=== PATIENT | male | born 1990 | race Caucasian/White ===

== ENCOUNTER → 2021-08-21 08:36 | Outpatient (BNVA) | payer MEDICAID, SELFPAY | PROVIDERS: Family Provider Emergency Medicine; PCP Family Medicine; Visit Provider Psychiatry & Neurology Psychiatry | DX: F43.12 Post-traumatic stress disorder, chronic (principal); F15.21 Other stimulant dependence, in remission; F11.21 Opioid dependence, in remission; F10.21 Alcohol dependence, in remission; F12.20 Cannabis dependence, uncomplicated; F17.210 Nicotine dependence, cigarettes, uncomplicated; F15.959 Other stimulant use, unspecified with stimulant-induced psychotic disorder, unspecified | CPT/HCPCS: 99204 ==

== ENCOUNTER → 2021-09-25 10:47 | Outpatient (BNVA) | payer MEDICAID, SELFPAY | PROVIDERS: Family Provider Emergency Medicine; PCP Family Medicine; Visit Provider Psychiatry & Neurology Psychiatry | DX: F43.12 Post-traumatic stress disorder, chronic (principal); F15.959 Other stimulant use, unspecified with stimulant-induced psychotic disorder, unspecified; F17.210 Nicotine dependence, cigarettes, uncomplicated; F12.20 Cannabis dependence, uncomplicated; F11.21 Opioid dependence, in remission; F10.21 Alcohol dependence, in remission; F15.21 Other stimulant dependence, in remission | CPT/HCPCS: 99214 ==

== ENCOUNTER 2023-03-29 13:19 | Emergency (ER) | payer MEDICAID, SELFPAY ==
[2023-03-29 13:41] VITALS: BMI 33.8
[2023-03-29 13:44] VITALS: BP 169/122; PULSE 102; RESP 16; TEMP 36.8; O2SAT 98
--- NOTE | 2023-03-29 13:53 | ED_ITS ---
HPI - Skin/Abscess/Foreign Bdy General: Chief complaint: Skin/Abscess/Foreign Body Stated complaint: swelling on right index finger Time Seen by Provider: 03/29/23 13:45 Source: patient Mode of arrival: ambulatory Limitations: no limitations History of Present Illness: Patient is a nice 32-year-old male who presents to ED today with concerns of an infection to his right index finger. He states a few days ago he noticed what looked like a small pimple to the finger that has since progressed and enlarged. 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 Last tetanus is unknown. He complains of pain and redness to the dorsal aspect of his proximal right index finger. He has not noticed any diffuse uniform digit swelling. He maintains full range of motion of the MCP joint and throughout the digit. He has not noticed any streaking into his hand. No fevers. MD complaint: abscess/boil and lesion Onset (ago): day(s) Tetanus up to date: no Location: R hand Severity: mild Pain Consistency: constant Relieving factors: none Exacerbating factors: none Context: other (had small pimple a few days ago) Associated symptoms: Reports no associated symptoms; Deny chills or fever(s) Treatments prior to arrival: none Review of Systems Const: Denies: fever(s) or chills Musc: Reports: extremity pain (R index finger) and extremity swelling (R index finger); Denies: joint pain, joint swelling or limited range of motion Skin/Breast: Reports: new lesions (R index finger) Neuro: Denies: numbness in extremities or sensory changes PFS ED PFSH: Family History Mother CAD (coronary artery disease) Other Cancer Social History Smoking and tobacco status: current every day smoker cigars Cigars smoked per week: 7 Years smoked cigars: 21 Quit status (tobacco): considering quitting Second hand smoke exposure: Yes Alcohol intake: current Alcohol intake frequency: 3 or more drinks per day Physical Exam Const: COMMON NORMALS: no acute distress, patient oriented x3, no limitations, alert and well nourished Extremity: COMMON NORMALS: full ROM and capillary refill normal GENERAL: Yes normal exam except as noted Hand Right Back: 1. erythema/mild edema; small central lesion; no circumferential redness or edema; no lymphangitic streaking; no underlying fluctuance; full range of motion of his MCP and PIP joints; redness and swelling does not extend into either joint and is localized to the dorsal proximal phalanx region Neuro: COMMON NORMALS: patient oriented x3, moves all extremities, no focal motor deficits and no sensory deficits noted SENSORIUM/ORIENTATION: Yes alert Skin: NARRATIVE SKIN EXAM: see above Course Vital Signs: Vital signs: Vital Signs Temperature 98.3 F 03/29/23 13:44 Pulse Rate 102 H 03/29/23 13:44 Respiratory Rate 16 03/29/23 13:44 Blood Pressure 169/122 03/29/23 13:44 Pulse Oximetry 98 03/29/23 13:44 Oxygen Delivery Me thod Room Air 03/29/23 13:44 MDM - Skin/Abscess/Foreign Bdy Medicial Decision Making Patient with cellulitis/early abscess formation to the dorsal aspect of his right index proximal phalanx. Nothing at this time is amendable to I&D. No concern for foreign body. He has nothing at this time to suggest an extensor tenosynovitis. Tetanus was updated. Patient reports history of MRSA so will cover with Bactrim. Strict return to ED precautions given. Discharge Plan Discharge Patient Disposition: Home Clinical Impression: Cellulitis Qualifiers: Site of cellulitis: extremity Site of cellulitis of extremity: finger Laterality: right Qualified Code(s): L03.011 - Cellulitis of right finger Condition: Stable Prescriptions: New Bactrim DS 800-160 mg tablet 2 tab PO BID 7 Days Qty: 28 0RF No Action trazodone 50 mg tablet 100 mg PO .HS PRN (Reason: insomnia) Qty: 60 1RF risperidone [Risperdal] 2 mg tablet 2 mg PO BID Qty: 60 1RF fluoxetine [Prozac] 20 mg capsule 20 mg PO DAILY Qty: 30 1RF Discharge Orders: Discharge ED (Routine); Ordered 03/29/23 Ordered By: Rocio Nevarez Referrals: Reinier Billy MD [Primary Care Provider] - Patient Instructions: Cellulitis (ED) Activity Restrictions/Additional Instructions: Take Bactrim as prescribed. Please return if you develop any fevers, worsening redness or swelling, drainage, red streaking up your hand or arm, diffuse swelling to your entire finger, severe pain with flexion or extension of your finger, or any other concerns you may have. Tetanus has been updated today, 03/29/2023 Coding Level of Care Code ED Protective Services Officer for Wilbert Jo
[2023-03-29 14:42] VITALS: BP 169/122; PULSE 102; RESP 16; TEMP 36.8; O2SAT 98
== END 2023-03-29 14:20 | disposition home or self-care (01) ==
PROVIDERS: Emergency Provider Physician Assistant; PCP Family Medicine
DX: L03.011 Cellulitis of right finger (principal); F17.210 Nicotine dependence, cigarettes, uncomplicated
CPT/HCPCS: 99283

== ENCOUNTER 2023-09-15 15:34 | Emergency (ER) | payer MEDICAID, SELFPAY ==
--- NOTE | 2023-09-15 15:35 | XRR_ITS ---
PROCEDURE INFORMATION: Exam: XR Left Shoulder Exam date and time: 09/15/2023 4:14 PM Age: 33 years old Clinical indication: Injury or trauma; Fall; Blunt trauma (contusions or hematomas); Shoulder; Left TECHNIQUE: Imaging protocol: Radiologic exam of the left shoulder. Views: 2 or more views. COMPARISON: No relevant prior studies available. FINDINGS: Bones/joints: Normal. Soft tissues: Normal. XR/XR shoulder LT min 2V* [id number] IMPRESSION: No acute findings.
[2023-09-15 15:44] VITALS: BP 176/108; PULSE 108; RESP 16; TEMP 36.7; O2SAT 99
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
== END 2023-09-15 18:56 | disposition home or self-care (01) ==
PROVIDERS: Emergency Provider Emergency Medicine; PCP Family Medicine
DX: M54.2 Cervicalgia (principal); F17.290 Nicotine dependence, other tobacco product, uncomplicated
CPT/HCPCS: 71101; 72125; 73030; 99284

== ENCOUNTER 2024-11-20 02:14 | Inpatient (IN) | payer OTHER, SELFPAY ==
[2024-11-20 02:22] VITALS: BP 149/97; PULSE 90; RESP 22; TEMP 36.5; O2SAT 96; BMI 30.8
[2024-11-20] MEDS: OLANZapine 10 mg ODT 20 MG PO (02:41)
[2024-11-20] MEDS: LORazepam 2 mg Tablet PO (02:41)
[2024-11-20 03:25] LABS: Basophils # 0.1 10^3/uL (0.0-0.1); Basophils % 0.6 %; Eosinophils # 0.3 10^3/uL (0.0-0.8); Eosinophils % 4.2 %; Lymphocytes # 3.2 10^3/uL (0.8-4.8); Lymphocytes % 39.3 %; Mean Corpuscular Hemoglobin 30.4 pg (27-33); Mean Corpuscular Volume 84.7 fl (82-101); Mean Platelet Volume 11.4 fL (7.4-10.4); Monocytes % 12.5 %; Neutrophils # 3.51 10^3/uL (1.8-7.7); Neutrophils % 43.2 %; Nucleated Red Blood Cells % 0 %; Platelet Count 240 10^3/cmm (157-399); Red Blood Count 4.96 10^6/uL (3.85-5.65); Red Cell Distribution Width 11.9 % (12.1-15.1); White Blood Count 8.14 10^3/uL (3.29-11.43)
--- NOTE | 2024-11-20 03:42 | W.ED.PSYCHS ---
HPI - Psych General: Chief Complaint: Psychiatric Symptoms Stated Complaint: SI Time Seen by Provider: 11/20/24 02:32 History of Present Illness: 34-year-old male patient. He is quite distraught. He has become more depressed. His brother is here with him and is written an affidavit. The patient is willing to come in for help. He is a former amphetamine addict, and notes that he relapsed 3 days ago. He is feeling helpless, hopeless. He is having suicidal ideations for the first time in his life he says. Related Data Previous Rx's ?Medication ?Instructions ?Recorded trazodone 50 mg tablet 100 mg (2 x 50 mg) PO .HS PRN 08/21/21 insomnia #60 tabs fluoxetine 20 mg capsule (Prozac) 20 mg PO DAILY #30 caps 09/25/21 risperidone 2 mg tablet (Risperdal) 2 mg PO BID #60 tabs 09/25/21 methocarbamol 750 mg tablet 750 mg PO Q6H PRN spasms #20 tabs 09/15/23 naproxen 500 mg tablet (Naprosyn) 500 mg PO BID PRN pain #20 tabs 09/15/23 Allergies Allergy/AdvReac Type Severity Reaction Status Date / Time No Known Allergies Allergy Verified 09/15/23 15:44 PFSH ED PFSH: Family History Mother CAD (coronary artery disease) Other Cancer Social History Smoking and tobacco/nicotine status: current every day tobacco/nicotine user cigars Cigars smoked per week: 7 Years smoked cigars: 21 Quit status (tobacco/nicotine): considering quitting Second hand smoke exposure: Yes Alcohol intake: current Alcohol intake frequency: 3 or more drinks per day Physical Exam Const: COMMON NORMALS: no acute distress GENERAL APPEARANCE: cooperative and in distress (Psychological distress); not ill appearing and not frail appearing HENMT: COMMON NORMALS: normocephalic, atraumatic and Normal external nose present HEAD & SCALP: normocephalic and atraumatic FACE & SINUS: normal facial exam and face symmetric NOSE: Normal external nose present Eye: COMMON NORMALS: Equal, round and reactive pupils present and EOMs intact bilaterally PUPIL: Yes Equal, round and reactive pupils present Neck/C-Spine: GENERAL: Yes trachea midline Chest: CHEST: Yes Symmetrical chest wall rise Resp: COMMON NORMALS: normal respiratory effort, No retractions, No use of accessory muscles and clear to auscultation bilaterally AUSCULTATION: clear to auscultation bilaterally Cardio: COMMON NORMALS: regular rate and regular rhythm RATE: regular rate RHYTHM: regular rhythm GI: COMMON NORMALS: Normal to inspection, nondistended, normoactive bowel sounds present Extremity: COMMON NORMALS: no pedal edema Neuro: YULIA COMA SCALE: document GCS findings [place] coma scale eye opening: Spontaneous [place] coma scale verbal response: Orientated Yulia coma scale motor response: Obey commands [place] coma scale total score: 15 SENSORY EXAM: Yes extremities (intact) Psych: COMMON NORMALS: speech normal SPEECH: Yes normal speech Skin: COMMON NORMALS: no rashes or lesions noted GENERAL SKIN EXAM: no rashes or lesions noted Course Vital Signs: Vital signs: Vital Signs Temperature 97.7 F 11/20/24 02:22 Pulse Rate 94 11/20/24 04:08 Respiratory Rate 22 H 11/20/24 02:22 Blood Pressure 136/90 11/20/24 04:08 Pulse Oximetry 98 11/20/24 04:08 Oxygen Delivery Me thod Room Air 11/20/24 04:08 MDM - Psych Medical Decision Making Medically this patient is quite stable. His potassium is 3.2, and is repleted. His labs are otherwise not remarkable. He is voluntary at this point, and willing to stay. He is obviously quite depressed, in distress, and will require psychiatric evaluation. We do have a bed available. He will be admitted to the neuropsychiatric unit. Psychiatry agrees. Lab Data 11/20/24 03:15 11/20/24 03:15 Laboratory Results WBC 8.14 10^3/uL (3.29-11.43) 11/20/24 03:15 RBC 4.96 10^6/uL (3.85-5.65) 11/20/24 03:15 Hgb 15.10 g/dL (11.27-16.99) 11/20/24 03:15 Hct 42.0 % (37-53) 11/20/24 03:15 MCV 84.7 fl (82-101) 11/20/24 03:15 MCH 30.4 pg (27-33) 11/20/24 03:15 MCHC 36.0 g/dL (30-55) 11/20/24 03:15 RDW 11.9 % (12.1-15.1) L 11/20/24 03:15 Plt Count 240 10^3/cmm (157-399) 11/20/24 03:15 MPV 11.4 fL (7.4-10.4) H 11/20/24 03:15 Neut % (Auto) 43.2 % 11/20/24 03:15 Lymph % (Auto) 39.3 % 11/20/24 03:15 [place] % (Auto) 12.5 % 11/20/24 03:15 Eos % (Auto) 4.2 % 11/20/24 03:15 Baso % (Auto) 0.6 % 11/20/24 03:15 Neut # (Auto) 3.51 10^3/uL (1.8-7.7) 11/20/24 03:15 Lymph # (Auto) 3.2 10^3/uL (0.8-4.8) 11/20/24 03:15 [place] # (Auto) 1.0 10^3/uL (0.2-0.9) H 11/20/24 03:15 Eos # (Auto) 0.3 10^3/uL (0.0-0.8) 11/20/24 03:15 Baso # (Auto) 0.1 10^3/uL (0.0-0.1) 11/20/24 03:15 Nucleated RBC % (auto) 0 % 11/20/24 03:15 Nucleated RBCs # 0.0 /100WBC 11/20/24 03:15 Sodium 137 mmol/L (136-145) 11/20/24 03:15 Potassium 3.2 mmol/L (3.5-5.1) L 11/20/24 03:15 Chloride 97 mmol/L (98-107) L 11/20/24 03:15 Carbon Dioxide 27 mmol/L (22-29) 11/20/24 03:15 Anion Gap 16.2 (5-19) 11/20/24 03:15 BUN 20 mg/dL (6-20) 11/20/24 03:15 Creatinine 0.9 mg/dL (0.7-1.2) 11/20/24 03:15 GFR Calculation 96.6 mL/min (90-130) 11/20/24 03:15 Glucose 113 mg/dL (65-115) 11/20/24 03:15 Calculated Osmolality 287 mOsm/kg (285-295) 11/20/24 03:15 Calcium 9.5 mg/dL (8.5-10.5) 11/20/24 03:15 Total Bilirubin 1.1 mg/dL (0.15-1.2) 11/20/24 03:15 AST 18 U/L (0-40) 11/20/24 03:15 ALT 18 U/L (0-41) 11/20/24 03:15 Alkaline Phosphatase 52 U/L (40-130) 11/20/24 03:15 Total Protein 7.2 g/dL (6.6-8.7) 11/20/24 03:15 Albumin 4.6 g/dL (3.5-5.2) 11/20/24 03:15 Globulin 2.6 g/dL (1.3-4.6) 11/20/24 03:15 Salicylates < 0.3 mg/dL (3-10) L 11/20/24 03:15 Acetaminophen < 5.0 ug/mL (10-30) L 11/20/24 03:15 Ethyl Alcohol < 10 mg/dL (0-10) 11/20/24 03:15 No radiology studies performed this visit Discharge Plan Discharge Patient Disposition: Admitted As Inpatient Clinical Impression: Suicidal ideation, Depression Condition: Stable Coding Level of Care Code ED Day Care Supervisor for Wilbert Jo
[2024-11-20 03:48] LABS: Alanine Aminotransferase 18 U/L (0-41); Albumin Level 4.6 g/dL (3.5-5.2); Alkaline Phosphatase 52 U/L (40-130); Anion Gap 16.2 (5-19); Aspartate Amino Transferase 18 U/L (0-40); Blood Urea Nitrogen 20 mg/dL (6-20); Calcium 9.5 mg/dL (8.5-10.5); Carbon Dioxide 27 mmol/L (22-29); Chloride 97 mmol/L (98-107); Creatinine Clr Calc Pharmacy 151.9085; Globulin 2.6 g/dL (1.3-4.6); Glomerular Filtration Rate 96.6 mL/min (90-130); Glucose 113 mg/dL (65-115); Osmolality Calculated 287 mOsm/kg (285-295); Potassium 3.2 mmol/L (3.5-5.1); Sodium 137 mmol/L (136-145); Total Bilirubin 1.1 mg/dL (0.15-1.2); Total Protein 7.2 g/dL (6.6-8.7)
[2024-11-20 03:52] LABS: Acetaminophen < 5.0 ug/mL (10-30); Alcohol Level < 10 mg/dL (0-10); Salicylate < 0.3 mg/dL (3-10)
[2024-11-20 04:08] VITALS: BP 136/90; PULSE 94; O2SAT 98
[2024-11-20] MEDS: potassium chloride ER 20 mEq Tablet 40 MEQ PO (05:01)
--- NOTE | 2024-11-20 05:50 | PC.NURSE ---
96 Hour Hold Pt served with copy of 96 HH by this RN and security. Pt is sleepy and grunting when spoken to. Copy of rights laid at bedside.
[2024-11-20 06:31] VITALS: BP 128/94; PULSE 88; O2SAT 98
--- NOTE | 2024-11-20 11:28 | PC.OT ---
OT EVALUATION ATTEMPTED; PATIENT IS SLEEPING SOUNDLY AND DOES NOT AWAKEN.
--- OUTSIDE RECORDS SUMMARY | 2024-11-20 13:28 | XMS_ITS | Clinical Summary ---
[facility] Address [address] 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 Gender Identity Not on file Sexual Orientation Not on file Last Filed Vital Signs Vital Sign Reading Time Taken Comments Blood Pressure 103/84 01/17/2008 11:53 AM CDT Pulse 72 01/17/2008 11:53 AM CDT Temperature - - Respiratory Rate - - Oxygen Saturation - - Inhaled Oxygen Concentration - - Weight - - Height - - Body Mass Index - - Plan of Treatment Health Maintenance Due Date Last Done Comments DTAP/TDAP/TD VACCINES (1 - Tdap) 2009 HEPATITIS B VACCINES (1 of 3 - 19+ 3-dose series) 2009 INFLUENZA VACCINE (#1) 2024 HPV VACCINES Aged Out No longer eligi ble based on patient's age to complete this topic PNEUMOCOCCAL VACCINE 0-49 YEARS Aged Out No longer eligible based on patient's age to complete this topic Insurance [place]ICAID [place] Member Subscriber Plan / Payer (Ef fective 2007-Present) Name:Guru Kidd Relation to Subscriber:Self Name:Bernabe Guru Payer ID:[id number] Group ID:Not on file Type:Medicaid Address: [address] [id number] [place] [employer] [place]
[2024-11-20 14:00] VITALS: BP 126/75; PULSE 68; RESP 16; O2SAT 98
--- NOTE | 2024-11-20 15:15 | PC.NURSE ---
Patient continues to sleep, respirations even and non-labored. This nurse has attempted to talk with patient and has offered meals. Patient will respond with a garbled okay , then returns to sleep. Will continue regular rounding
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
--- NOTE | 2024-11-20 16:10 | PC.NURSE ---
medications This nurse called [facility] in for med reconciliation. Two meds filled on 10/30/[address] Marcus Torres: hydrocodone acet 7.5-325, a 30 day supply; and HCTZ 50mg a 30-day supply. Per Dr. Izaguirre, this nurse is to continue the HCTZ at this time.
[2024-11-20 19:49] VITALS: BP 121/73; PULSE 88; RESP 18; TEMP 36.6; O2SAT 99
[2024-11-21 06:00] VITALS: BP 128/80; PULSE 98; RESP 17; TEMP 37.2; O2SAT 99
[2024-11-21] MEDS: hydroCHLOROthiazide 25 mg Tablet 50 MG PO (11:15)
[2024-11-21] MEDS: nicotine 2 mg Gum BUCCAL (11:25)
[2024-11-21 14:00] VITALS: BP 134/81; PULSE 101; RESP 17; TEMP 36.7; O2SAT 98
--- NOTE | 2024-11-21 17:43 | P.NPUPN_ITS ---
Subjective NPU 2 Subjective: 34-year-old male admitted with recent in take of methamphetamine with suicidal ideation and hallucinations and paranoia. The patient had continued to isolate himself on the unit. He had been sleeping most of the day. Patient had a hearing regarding prior charges today and he had been uncertain as to whether he would be able to attend it virtually. The patient had continued to have limited oral intake. He had continued to endorse feeling depressed and suicidal. . He had endorsed hearing voices. Mental Status Exam 2 MSE Comments: Patient was lying in bed and difficult to arouse. He had a dutton and his hygiene appeared poor. There was no clear evidence of any abnormal involuntary motor movements, tics, or tremors appreciated. His speech was slurred diminished in production and diminished in volume. He had no eye contact. There was some mild psychomotor agitation. His mood was described as depressed. His affect was flat. He did appear to be responding to internal stimuli. There was some evidence of delusional thinking and paranoia. His insight is impaired. His judgment is poor. His impulse control appeared impaired. He was alert and oriented to person and place. Vitals/I&O/Wt Last Vital Signs Temp 98.1 F 11/21/24 14:00 Pulse 101 H 11/21/24 14:00 Resp 17 11/21/24 14:00 BP 134/81 11/21/24 14:00 Pulse Ox 98 11/21/24 14:00 O2 Del Method Room Air 11/21/24 06:00 Weight last 48 hrs Weight 108.862 kg Data NPU 11/20/24 03:15 11/20/24 03:15 A&P Assessment and plan (1) Methamphetamine-induced psychotic disorder: (2) Depression: Plan 34-year-old male with a history of methamphetamine use disorder currently appearing depressed and psychotic here involuntarily. #1.? Engage patient in individual milieu and group therapy. #2?? Recommend sober living treatment at the highest level of care to which the patient is willing to commit #3??? Obtain UDS, restart invega/risperidone #4?? TO-15 minute checks? #5?? Will attempt to gather collateral information as patient on involuntary hold. PDMP PDMP Reviewed: Not Reviewed Involuntary Hold Information 2 Hold Status: Legal Status: 96 Hour Hold Date/Time Hold Expires: 11/24/2024 @ 0438 Attestations NPU 2 Medical Necessity Statement*: Inpatient hospitalization is medically necessary and deemed to be the clinically appropriate intervention at this time. Medications will be adjusted and initiated as indicated. The patient?s likely length of stay is 4-6 days. ? 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
[2024-11-21 20:39] VITALS: BP 140/91; PULSE 98; RESP 18; TEMP 36.8; O2SAT 97
[2024-11-21] MEDS: nicotine 4 mg lozenge MUCOUS MEM (20:44)
[2024-11-21] MEDS: paliperidone ER 3 mg Tablet PO (20:44)
[2024-11-21] MEDS: trazodone 50 mg Tablet PO (20:44)
[2024-11-22 06:00] VITALS: BP 139/89; PULSE 88; RESP 18; TEMP 36.6; O2SAT 96
[2024-11-22] MEDS: hydroCHLOROthiazide 25 mg Tablet 50 MG PO (09:03)
[2024-11-22] MEDS: nicotine 4 mg lozenge MUCOUS MEM ×4 (10:38→21:08)
[2024-11-22 13:49] VITALS: BP 125/73; PULSE 115; RESP 16; TEMP 36.6; O2SAT 98
--- NOTE | 2024-11-22 17:29 | P.NPUPN_ITS ---
Subjective NPU 2 Subjective: 34-year-old male admitted with recent in take of methamphetamine with suicidal ideation and hallucinations and paranoia. The patient had reported feeling much better today. He had reported that he had some legal problems but appeared unconcerned about the consequences. He had reported that he had a place to go and was hopeful about being able to return home soon. He had reported the use of methamphetamine and stated that his use was of minimal concern to him at this time. He had denied any hallucinations at this time. He had appeared more social and was less isolative on the unit. He had reported improved sleep while taking the Invega last night. He denied any suicidal thoughts at this time. Mental Status Exam 2 MSE Comments: Patient had a dutton and appeared to have improved hygiene and normal gait today. He appeared in no acute distress and was pleasant and cooperative on interview. His speech was normal in regards to rate rhythm and prosody. His mood was described as good. His affect appeared brighter. His thought process was linear logical and goal-directed. His thought content showed no evidence of homicidal or suicidal ideation. He did not appear to be responding to internal stimuli. There was no evidence of delusional thinking. His attention span appeared fair. His recent and remote memory were grossly intact. His insight was limited. His judgment was improving. His impulse control appeared fair today. Vitals/I&O/Wt Last Vital Signs Temp 97.8 F 11/22/24 13:49 Pulse 115 H 11/22/24 13:49 Resp 16 11/22/24 13:49 BP 125/73 11/22/24 13:49 Pulse Ox 98 11/22/24 13:49 O2 Del Method Room Air 11/22/24 13:49 Data NPU 11/20/24 03:15 11/20/24 03:15 A&P Assessment and plan (1) Methamphetamine-induced psychotic disorder: (2) Depression: Plan 34-year-old male with a history of methamphetamine use disorder currently appearing depressed and psychotic here involuntarily. #1.? Engage patient in individual milieu and group therapy. #2?? Recommend sober living treatment at the highest level of care to which the patient is willing to commit #3???Patient appears much improved; continue Invega 3mg at night. #4?? TO-15 minute checks? #5?? Will attempt to gather collateral information as patient on involuntary hold. PDMP PDMP Reviewed: Not Reviewed Involuntary Hold Information 2 Hold Status: Legal Status: 96 Hour Hold Date/Time Hold Expires: 11/24/2024 @ 0438 Attestations NPU 2 Medical Necessity Statement*: Inpatient hospitalization is medically necessary and deemed to be the clinically appropriate intervention at this time. Medications will be adjusted and initiated as indicated. The patient?s likely length of stay is 2-3 days. ? 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
[2024-11-22] MEDS: hyDROXYzine 25 mg Capsule 50 MG PO ×2 (17:48→21:04)
[2024-11-22 19:39] LABS: Add Urine Microscopic? NO
[2024-11-22 19:54] LABS: Amphetamines Screen Urine Positive (Negative); Barbiturates Screen Urine Negative (Negative); Benzodiazepines Screen Urine Positive (Negative); Cocaine Screen Urine Negative (Negative); Opiate Screen Urine Negative (Negative); PCP Screen Urine Negative (Negative); THC Screen Urine Negative (Negative)
[2024-11-22 20:12] LABS: Add Urine Culture? No; Bilirubin Urine Neg (Negative); Blood Urine Neg (Negative); Glucose Urine UA Norm (Normal); Ketones Urine Negative (Negative); Leukocyte Esterase Urine Negative (Negative); Nitrate Urine Negative (Negative); Protein Urine Neg (Negative); Specific Gravity, Urine 1.031 (1.005-1.030); Urine Appearance Clear (CLEAR); Urine Color Yellow (Yellow); pH Urine 6 (5-7)
[2024-11-22 20:13] LABS: Charge for UA Resulting for Rev
[2024-11-22 20:18] VITALS: BP 123/82; PULSE 100; RESP 17; TEMP 36.7; O2SAT 97
[2024-11-22] MEDS: paliperidone ER 3 mg Tablet PO (21:04)
[2024-11-22] MEDS: trazodone 50 mg Tablet PO (21:04)
[2024-11-23 06:00] VITALS: BP 121/77; PULSE 92; RESP 16; TEMP 36.6; O2SAT 96
[2024-11-23] MEDS: hydroCHLOROthiazide 25 mg Tablet 50 MG PO (08:33)
[2024-11-23] MEDS: nicotine 4 mg lozenge MUCOUS MEM ×3 (08:33→13:54)
[2024-11-23 13:58] VITALS: BP 130/90; PULSE 101; RESP 16; TEMP 37.1; O2SAT 99
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
[2024-11-23 14:31] VITALS: BP 130/90; PULSE 101; RESP 16; TEMP 37.1; O2SAT 99
== END 2024-11-23 15:02 | disposition home or self-care (01) | DRG 897 ==
LOC: ER 04:37 → NP 06:31
PROVIDERS: Admitting Provider Psychiatry & Neurology Psychiatry; Emergency Provider Emergency Medicine; PCP Emergency Medicine; Visit Provider Psychiatry & Neurology Psychiatry
DX: F15.951 Other stimulant use, unspecified with stimulant-induced psychotic disorder with hallucinations (principal); R45.851 Suicidal ideations; F15.950 Other stimulant use, unspecified with stimulant-induced psychotic disorder with delusions; F32.A Depression, unspecified; F17.290 Nicotine dependence, other tobacco product, uncomplicated; F10.10 Alcohol abuse, uncomplicated
CPT/HCPCS: 36415; 80053; 80306; 80307; 81003; 85025; 97150; 97165; 99285; J9999